=== PATIENT | female | born 1990 | race Caucasian/White ===

== ENCOUNTER 2018-04-12 06:00 | Inpatient (IN) ==
[2018-04-12] MEDS ORDERED: Famotidine 20 MG/2 ML VIAL IVP PRN (06:49)
[2018-04-12] MEDS ORDERED: Naloxone 0.4 MG/ML INJ IVP PRN (06:49)
[2018-04-12] MEDS ORDERED: *HR* Nalbuphine 10 MG/ML AMPUL IVP PRN (06:49)
[2018-04-12] MEDS ORDERED: miSOPROStol 25 MCG TABLET PO PRN (06:51)
[2018-04-12] MEDS ORDERED: Ringers Solution, Lactated 1,000 ML ONE (06:58)
[2018-04-12 07:09] LABS: Amphetamine Screen,Urine Negative ng/mL (Cutoff=1000); Barbiturate Screen,Urine Negative ng/mL (Cutoff=200)
[2018-04-12 07:10] LABS: Benzodiazepines Screen,Urine Negative ng/mL (Cutoff=300); Cannabinoid Screen,Urine Negative ng/mL (Cutoff = 50); Cocaine Screen,Urine Negative ng/mL (Cutoff= 300); Opiate Screen,Urine Negative ng/mL (Cutoff=300); Phencyclidine Screen,Urine Negative ng/mL (Cutoff=25)
--- NOTE | 2018-04-12 07:14 | OB/GYN History & Physical ---
Date of Encounter: 04/26/18 Time of Encounter: 07:12 Assessment and Plan (1) 40 weeks gestation of Status: Acute Cytotec given, 3cm on arrival Pain management as needed Clindamycin given for GBS given PCN allergy Plan for vaginal delivery (2) History of drug abuse Status: Acute On subutex, continuing (3) Hepatitis C Status: Acute Qualifiers: Viral hepatitis chronicity: unspecified Hepatic coma status: without hepatic coma Qualified Code(s): B19.20 - Unspecified viral hepatitis C without hepatic coma History of Present Illness Chief complaint: Labor induction HPI: Ms. Palma is a 28 year old female who presents at 40 weeks for postdates induction of labor. Patient has a history of Hepatitis C and drug abuse (clean since June 2017), now on Subutex. Denies any previous surgeries, vaginal bleeding or discharge. Denies headache, visual changes, or feeling contractions. GBS positive O positive Hep C positive Rubella and Varicella immune All other serologies negative Past Med Surg Social Fam HX - Past Medical History Medical history: hepatitis, other (h/o drug abuse) Additional medical history: varicose veins Psychiatric history: anxiety - Past Surgical History Surgical History: no surgical history Additional surgical history: pcos - Social History Smoking Status: Former smoker Alcohol use: none Drug use: IV Drug Use - Family History Mother Living Status: Still Living Hx Family Cardiac Disorders: Yes (htn) Hx Family Respiratory Disorders: No Hx Family Cancer: No Hx Family GI Disorders: No Hx Family Genitourinary Disorders: No Hx Family Endocrine Disorder: No Hx Family Musculoskeletal Disorders: No Hx Family Neuromuscular Disorders: No Hx Family Neurologic Disorders: No Hx Family HEENT Disorders: No Hx Family Autoimmune Disorders: No Hx Family Reproductive Disorders: No Hx Family Psychosocial Disorders: No Hx Family Medical Disorders: No Obstetrical History - Pregnancies : 2 Para: 0 Term: 0 : 0 Ab's: 1 Livin Medications and Allergies Formula Tablet 1 tab PO DAILY 04/12/18 [History] Subutex 8 mg SL BID 04/12/18 [History] RX: Benzocaine/Menthol [place] [Dermoplast [place]] 1 appl TP QID PRN aerosol 04/14/18 [Rx] RX: Ibuprofen [Motrin] 600 mg PO Q6HR PRN #30 tablet 04/14/18 [Rx] Allergy/AdvReac Type Severity Reaction Status Date / Time Penicillins [PCN] Allergy Hives Verified 04/12/18 07:00 Review of System OB All systems PM: reviewed and no additional remarkable complaints except as stated - Constitutional Constitutional ROS IM: no headache(s), no weakness - Genitourinary Genitourinary: no hematuria, no pelvic pain - Integumentary Integumentary: no swelling Exam - Vital Signs Vital signs: Initial Vital Signs Temp Pulse Resp BP 97.0 F L 86 15 122/80 04/12/18 06:40 04/12/18 06:40 04/12/18 06:40 04/12/18 06:40 - Constitutional Constitutional: well developed, well nourished, no acute distress, average body habitus - HEENT HEENT: Normocephaly, Mucus Membranes Moist - Cardiovascular Cardiovascular exam: RRR, +S1, +S2 - Abdomen Abdomen: Present: bowel sounds normal, gravid. Absent: diffuse tenderness - Extremities Deep Tendon Reflex Grade: 2+ Normal - Uterus Uterus exam: Present: normal size, normal contour Results Result Diagrams: 04/14/18 06:20 All other labs normal. - VTE Reasons for not Prescribing Prophylaxis: Treatment not Indicated - Low risk for VTE - Attending Attestation I examined this patient and my medical decision-making was reviewed with the Resident Physician. I agree with the documented findings, disposition and treatment plan as described except to the extent set forth below. Aaron Bee, FACOG
[2018-04-12 07:17] LABS: Basophils % 0.3 %; Eosinophils # 0.2 K/mcL (0.0-0.6); Hematocrit 36.5 % (35.3-44.9); Hemoglobin 12.5 g/dL (11.5-15.4); Immature Granulocytes % 0.7 % (0-4); Lymphocytes # 1.9 K/mcL (0.6-4.6); Lymphocytes % 19.9 %; Mean Corpuscular HGB Conc 34.2 g/dL (31.6-35.5); Mean Corpuscular Hemoglobin 32.6 pg (28.0-33.3); Mean Corpuscular Volume 95.3 fL (83.0-100.0); Mean Platelet Volume 12.7 fL (9.4-12.4); Monocytes # 0.4 K/mcL (0.0-1.3); Monocytes % 3.7 %; Neutrophils # 6.9 K/mcL (1.6-8.9); Platelet Count 167 K/mcL (140-400); Red Blood Count 3.83 M/mcL (3.82-4.97); Red Cell Distribution Width 13.3 % (11.5-14.5); Segmented Neutrophils % 73.4 %
[2018-04-12] MEDS: Clindamycin 900 MG/50 ML 900 MG/50 ML IV.SOLN IVPB SCH ×3 (07:23→23:29)
--- NOTE | 2018-04-12 11:14 | Anesthesia Evaluation PreOp ---
Date of Encounter: 04/12/18 Time of Encounter: 11:12 - Past History Planned Operation: [facility] Cardiac History: Denies any Significant Hx Pulmonary History: Former smoker WIRELINE OPERATOR History: Denies Any Significant HX Other Medical History: Hepatic (hepatitis C) Anesthesia History: No Prior Anesthetic Complications : Yes Alcohol Use: none Drug use: IV Drug Use (no abuse since 06/2017) Medications and Allergies Ferrous Sulfate 325 mg PO DAILY 04/12/18 [History] Formula Tablet 1 tab PO DAILY 04/12/18 [History] Subutex 8 mg SL BID 04/12/18 [History] 3 Allergy/AdvReac Type Severity Reaction Status Date / Time Penicillins [PCN] Allergy Hives Verified 04/12/18 07:00 - Meds/Allergy Pre-op Review Medications Reviewed: Yes Allergies Reviewed: Yes Beta Blockers on Current Med List: No Anesthesia Results - Labs 04/12/18 06:50 Anesthesia Exam O2 Sat Height 1.65 m Weight 99.4 kg Vital Signs Temp Pulse Resp BP 97.0 F L 86 15 122/80 04/12/18 06:40 04/12/18 06:40 04/12/18 06:40 04/12/18 06:40 NPO (# of Hours): solids > 8hrs Pain Scale: 0 Pain Scale Used: Numeric (1 - 10) - HEENT Pupil (Motor): Pupils equal Mallampati: II Teeth: Normal Oral Opening: Greater than 3 - WIRELINE OPERATOR LOC: Oriented WIRELINE OPERATOR Motor: Normal RUE, Normal LUE, Normal RLE, Normal LLE, Normal Face WIRELINE OPERATOR Sensory: Normal: RUE, LUE, RLE, LLE, Face - Cardiac Rhythm: Regular Murmur: None - Pulmonary Breath Sounds: bilateral Clear Respiratory Effort: Symmetrical Anesthesia Assess/Plan ASA Score: 2 Modified [place] Scale for Level of Consciousness: Cooperative, oriented, and tranquil Anesthetic Plan: Regional Autologous Blood: No Monitoring Plan: Standard Monitors Recovery Plan: Other
[2018-04-12] MEDS ORDERED: *HR* FentaNYL (PF) 100 MCG/2 ML VIAL EP ONE (11:16)
[2018-04-12] MEDS ORDERED: Bupivacaine-MPF 0.25% 10 ML VIAL EP ONE (11:16)
[2018-04-12] MEDS ORDERED: Lidocaine -MPF 1% 5 ML AMPUL ONE (11:18)
[2018-04-12] MEDS ORDERED: Epidural Premix (fent/bupiv) 110 ML EP SCH (11:30)
--- NOTE | 2018-04-12 12:24 | OB Labor Progress Note ---
Date of Encounter: 04/12/18 Time of Encounter: 12:22 Labor Progress Note - Cervix Cervix: /-1 - Heart Tones Heart Tones: CAT 1 - Interventions Interventions: AROM / clear - Plan Plan: Anticipate
--- NOTE | 2018-04-12 13:22 | Anesthesia Procedures ---
Date of Encounter: 04/12/18 Time of Encounter: 13:05 Procedures: Anesthesia - Epidural/Spinal Patient ID/Chart reviewed: Yes Patient examined: Yes OB Eval: Gestational age: 40 weeks 3 days OB Eval: : 2 OB Eval: Hx Para: 0 OB Eval: Dilated at (cm): 4 OB Eval: Contractions: Non-stressed pattern Consent Obtained: Yes Supplemental Oxygen: None/Room Air Site Prep: Aseptic Technique, Sterile prep and drape, Povidone-Iodine 1% Patient position: upright Local Anesthetic: Lidocaine 1% Amount of Local Anesthetic used: 3 Touhy Needle Gauge: 18 Touhy Needle Depth (cm): 6 Catheter Depth at Skin (cm): 11 Test Dose (1.5% Lido + Epi): Volume given (mls): 5 Test Dose Result: Negative Loading Dose: 0.25% Marcaine (mls): 5 Loading Dose: Fentanyl (mcg): 100 Loading Dose Administered: Thru Catheter Infusion Med: 0.125% Bupivacaine w/ 2 mcg/ml Fentanyl Infusion Rate (mls/hr): 14 (w/ demand bolus of 5mL q30min PRN) Catheter Secured in Place: Tegaderm, Tape Interspace Used: L4-L5 Loss of Resistance (JESSICA): Yes Blood: No CSF: No Paresthesia: No Procedure: successful on 1st attempt; patient tolerated procedure well; VSS Vitals + FHT's: see Marie CRAVEN's electronic records for VS entry
[2018-04-12] MEDS ORDERED: Oxytocin 20 units/ LR 1000 mL 20 UNIT/1,000 ML BAG IVC ONE (14:13)
[2018-04-12] MEDS ORDERED: Oxytocin 20 units/ LR 1000 mL 20 UNIT/1,000 ML BAG IVC SCH (14:15)
[2018-04-12] MEDS: Ringers Solution, Lactated 1,000 ML IVC SCH ×3 (14:19→23:32)
[2018-04-12] MEDS ORDERED: Ondansetron ODT 4 MG TAB.RAPDIS SL PRN (17:07)
--- NOTE | 2018-04-12 17:14 | Anesthesia Progress Note ---
Date of Encounter: 04/12/18 Time of Encounter: 17:11 Anesthesia Note - Note Note: called to patient's bedside to evaluate breakthrough labor pain. Patient describes pain as being "all over, insider her." 5mL of 0.125% bupivicaine given through epidural catheter. After 10min, patient reports no significant improvement in pain so another 5mL of 0.125% bupivicaine given through catheter. patient reports improvement in pain. VSS 04/12/18 17:11
[2018-04-12] MEDS ORDERED: *HR* Buprenorphine HCl 8 MG TAB.SUBL SL SCH (17:15)
[2018-04-12] MEDS ORDERED: *HR* Ropivacaine/PF 0.2% 20 ML VIAL ONE (20:29)
[2018-04-12] MEDS ORDERED: *HR* FentaNYL (PF) 100 MCG/2 ML VIAL ONE (20:29)
--- NOTE | 2018-04-12 22:31 | Anesthesia Progress Note ---
Date of Encounter: 04/12/18 Time of Encounter: 21:01 Anesthesia Note - Note Note: called to patient's bedside to evaluate breakthrough pain. A total of 15mL of 0.2% ropivicaine + 100mcg fentanyl required to make patient have significant improvement in pain score. VSS 04/12/18 21:01 04/12/18 22:31
[2018-04-12] MEDS ORDERED: Acetaminophen 325 MG TABLET PO ONE (23:15)
--- NOTE | 2018-04-13 01:57 | OB Labor Progress Note ---
Date of Encounter: 04/13/18 Time of Encounter: 01:56 Labor Progress Note - Cervix Cervix: 6-790/-1 - Heart Tones Heart Tones: Cat 1 - Interventions Interventions: IUPC placed
[2018-04-13] MEDS ORDERED: *HR* FentaNYL (PF) 100 MCG/2 ML VIAL ONE (02:32)
[2018-04-13] MEDS ORDERED: *HR* Ropivacaine/PF 0.2% 20 ML VIAL ONE ×2 (02:32→09:31)
--- NOTE | 2018-04-13 03:05 | Anesthesia Progress Note ---
Date of Encounter: 04/13/18 Time of Encounter: 02:45 Anesthesia Note - Note Note: called to patient bedside to evaluate breakthrough labor pain (Dr. Michaels remained in case). Patient c/o pain "all over inside her" and in her back. Confirmed proper catheter position. Positioned patient onto her back and 8mL of 0.2% ropivicaine + 100mcg fentanyl administered. Upon entering room 10 min later, patient was found to be resting in bed with eyes closed in no obvious distress. VSS 04/13/18 03:03
--- NOTE | 2018-04-13 06:02 | OB Labor Progress Note ---
Date of Encounter: 04/13/18 Time of Encounter: 05:22 Labor Progress Note - Subjective Subjective: per nurses - Cervix Cervix: 7/80/+ - Heart Tones Heart Tones: CAT 1 - [place]: Q 2-3 - Plan Plan: Anticipate
--- NOTE | 2018-04-13 06:14 | Anesthesia Progress Note ---
Date of Encounter: 04/13/18 Time of Encounter: 06:11 Anesthesia Note - Note Note: called to patient bedside to evaluate breakthrough labor pain. Patient describes pain 10/10 in her lower back with contractions. 12mL of 0.2% ropivicaine administered through epidural catheter. After 15 min, patient reports improvement in pain score. VSS. 04/13/18 06:12
[2018-04-13] MEDS: *HR* Buprenorphine HCl 8 MG TAB.SUBL SL SCH ×2 (06:21→18:01)
[2018-04-13] MEDS: Clindamycin 900 MG/50 ML 900 MG/50 ML IV.SOLN IVPB SCH (08:28)
--- NOTE | 2018-04-13 10:55 | OB Labor Progress Note ---
Date of Encounter: 04/13/18 Time of Encounter: 10:54 Labor Progress Note - Subjective Subjective: Pt somewhat comfortable with epidural. - Cervix Cervix: 9/90/+1 - Heart Tones Heart Tones: FHR Category I Baseline 140 Moderate variability No accelerations No decelerations - [place]: IUPC - inadequate contractions - Interventions Interventions: SVE Position changes to deep left lateral - Plan Plan: Continue active management Position changes as needed Increase pitocin to adequate contractions Anticipate
--- NOTE | 2018-04-13 13:20 | OB Labor Progress Note ---
Date of Encounter: 04/13/18 Time of Encounter: 13:17 Labor Progress Note - Subjective Subjective: Patient comfortable with epidural - Cervix Cervix: 10/100/+1 - Heart Tones Heart Tones: FHR category I - [place]: IUPC adequate contraction - Interventions Interventions: SVE Pushing x 1 hour - progress but maternal exhaustion - Plan Plan: Continue active management Labor down x 1 hour Anticipate
--- NOTE | 2018-04-13 16:27 | OB/GYN Procedure Note ---
Delivery - Delivery Date: 04/13/18 Provider: Mary Hernandez Intrapartum events: none Delivery induction: AROM, oxytocin, misoprostol Delivery augmentation: rupture of membranes, pitocin Delivery monitor: external FHT, external uterine, internal uterine Anesthesia: epidural Quantitated Blood Loss: 300 - (s) Infant A Delivery Date: 04/13/18 Delivery Time: 14:44 Presentation: vertex Position: OA Route of delivery: Gender: Female Viability: Viable Pounds: 8 Ounces: 9 Weight Gram: 3.865 kg at 1 minute: 8 at 5 mins: 9 Shoulder Dystocia: not encountered Specimens collected: cord blood Placenta: spontaneous, uterine exploration Cord: 3 umbilical vessels - Repair Episiotomy: none Laceration Description: Vaginal (left - repaired) - Complications Delivery complications: retained placenta (membranes retained - Dr. Lundberg called for extraction) Delivery comments: The the 28-year-old G2 now P1 who is admitted for induction of labor. She progressed with Pitocin augmentation, AROM, misoprostol to the second stage of labor. She pushed for 2 hours and 15 minutes. She will delivered a viable female infant, "Lashawn", direct OA over an intact perineum. The was placed on the maternal abdomen where she was allowed to transition spontaneously. The umbilical umbilical cord was double clamped by broommaker and cut by FOB after pulsations had ceased. No nuchal cord was identified. No shoulder dystocia was encountered. scores were 8 at 1 minute and 9 at 5 minutes. The infant weighed 8 lbs. 9 oz. The placenta delivered ([place]) spontaneously, fragmented, with a three-vessel cord. Dr. Lundberg was called to bedside for removal of trailing membranes. Inspection revealed a vaginal sidewall laceration on the left. The laceration was repaired with a 3-0 Vicryl. The uterus was firm with no active bleeding. The repair was done under epidural anesthesia. EBL was 300 mL. Placenta and umbilical artery blood gases were not sent. There were no complications during the procedure. Mom and baby are cuddling following delivery. - Disposition Mom disposition: stable in LDR [place] disposition: stable in LDR
[2018-04-13] MEDS ORDERED: Ibuprofen 600 MG TABLET PO PRN ×2 (21:02→22:42)
[2018-04-13] MEDS ORDERED: Oxytocin 20 units/ LR 1000 mL 20 UNIT/1,000 ML BAG IVC SCH (22:42)
[2018-04-13] MEDS ORDERED: Benzocaine/Menthol 56 GM AEROSOL SPRAY TP PRN (22:42)
[2018-04-13] MEDS ORDERED: Acetaminophen 325 MG TABLET PO PRN (22:42)
[2018-04-14 06:49] LABS: Basophils % 0.3 %; Eosinophils # 0.3 K/mcL (0.0-0.6); Hematocrit 33.1 % (35.3-44.9); Hemoglobin 11.1 g/dL (11.5-15.4); Immature Granulocytes % 0.8 % (0-4); Lymphocytes # 2.6 K/mcL (0.6-4.6); Lymphocytes % 18.2 %; Mean Corpuscular HGB Conc 33.5 g/dL (31.6-35.5); Mean Corpuscular Hemoglobin 32.1 pg (28.0-33.3); Mean Corpuscular Volume 95.7 fL (83.0-100.0); Mean Platelet Volume 12.6 fL (9.4-12.4); Monocytes # 0.6 K/mcL (0.0-1.3); Monocytes % 4.4 %; Neutrophils # 10.7 K/mcL (1.6-8.9); Platelet Count 140 K/mcL (140-400); Red Blood Count 3.46 M/mcL (3.82-4.97); Red Cell Distribution Width 13.2 % (11.5-14.5); Segmented Neutrophils % 74.3 %
[2018-04-14 08:03] VITALS: BP 118/76
[2018-04-14] MEDS ORDERED: Prenatal Vit/FA 1 EACH TABLET PO SCH (09:00)
[2018-04-14] MEDS ORDERED: *HR* Buprenorphine HCl 8 MG TAB.SUBL SL SCH (09:00)
--- NOTE | 2018-04-14 09:31 | Discharge Summary ---
Date of Encounter: 04/14/18 Time of Encounter: 09:33 - Discharge Diagnosis (1) Vaginal delivery Priority: Primary Status: Acute Comments: Continue care Anticipate discharge to [facility] status today Meeting day 1 milestones. (2) History of drug abuse Priority: Secondary Status: Acute Comments: Continue Subutex as previously prescribed. - Discharge Medications Prescriptions: Ibuprofen [Motrin] 600 mg PO Q6HR PRN #30 tablet PRN Reason: Cramping Home Medications: Formula Tablet 1 tab PO DAILY 04/12/18 [History] Subutex 8 mg SL BID 04/12/18 [History] Benzocaine/Menthol [place] [Dermoplast [place]] 1 appl TP QID PRN aerosol 04/14/18 [Rx] Ibuprofen [Motrin] 600 mg PO Q6HR PRN #30 tablet 04/14/18 [Rx] Allergies/Adverse Reactions: 3 Allergy/AdvReac Type Severity Reaction Status Date / Time Penicillins [PCN] Allergy Hives Verified 04/12/18 07:00 Data Procedures and tests throughout hospitalization: Laboratory Tests 04/12/18 04/12/18 04/14/18 06:45 06:50 06:20 WBC 9.4 14.4 H D RBC 3.83 3.46 L Hgb 12.5 11.1 L Hct 36.5 33.1 L MCV 95.3 95.7 MCH 32.6 32.1 MCHC 34.2 33.5 RDW 13.3 13.2 Plt Count 167 140 MPV 12.7 H 12.6 H Immature Gran % 0.7 0.8 Seg Neutrophils % 73.4 74.3 Lymphocytes % 19.9 18.2 Monocytes % 3.7 4.4 Eosinophils % 2.0 2.0 Basophils % 0.3 0.3 Neutrophils # 6.9 10.7 H Lymphocytes # 1.9 2.6 Monocytes # 0.4 0.6 Eosinophils # 0.2 0.3 Basophils # 0.0 0.0 Urine Opiates Screen Negative Ur Barbiturates Screen Negative Ur Phencyclidine Scrn Negative Ur Amphetamines Screen Negative U Benzodiazepines Scrn Negative Urine Cocaine Screen Negative U Marijuana (THC) Screen Negative Ur Drug Screen Interp See Below Labs on day of discharge: Labs from last 24 hours 04/14/18 06:20 WBC 14.4 H D RBC 3.46 L Hgb 11.1 L Hct 33.1 L MCV 95.7 MCH 32.1 MCHC 33.5 RDW 13.2 Plt Count 140 MPV 12.6 H Immature Gran % 0.8 Seg Neutrophils % 74.3 Lymphocytes % 18.2 Monocytes % 4.4 Eosinophils % 2.0 Basophils % 0.3 Neutrophils # 10.7 H Lymphocytes # 2.6 Monocytes # 0.6 Eosinophils # 0.3 Basophils # 0.0 Date of admission: 04/12/18 06:30 Primary care physician: PCP NONE Consults: 04/13/18 22:42 Consult to [facility] [CONS] Routine Comment: Vaginal delivery, consult needed Consult to Jewel Sorter [CONS] Routine Reason for SW Consult: Subutex group Discharging clinician: Sariah Martell Anticipated date of discharge: 04/14/18 - Patient Status Disposition: Home, Self-Care Condition: Good Functional capacity at discharge: independent ambulation Overall status at discharge: patient is progressing back to baseline - Discharge Instructions Follow Up With: NONE,PCP [Primary Care Provider] - Aaron Somers MD [Partnered Physician] - - Diet and Activity Activity: increase activity as tolerated Diet: regular diet Hospital Course [facility] Reason for admission: other (Induction of labor) Hospital course: Delivery Date: 04/13/18 Provider: Mary Hernandez Intrapartum events: none Delivery induction: AROM, oxytocin, misoprostol Delivery augmentation: rupture of membranes, pitocin Delivery monitor: external FHT, external uterine, internal uterine Anesthesia: epidural Quantitated Blood Loss: 300 Time Attestation: Total time spent providing and/or coordinating discharge services: Time Spent: Less than 30 minutes Exam - Constitutional Vitals: Temp Pulse Resp BP Pulse Ox 97.4 F L 65 16 118/76 99 04/14/18 08:02 04/14/18 08:02 04/14/18 08:02 04/14/18 08:02 04/14/18 06:03 General appearance IM: cooperative, A&O X 3, pleasant, no acute distress, answers questions appropriately - Respiratory Respiratory exam: Present: CTAB - Cardiovascular Cardiovascular exam IM: Present: RRR, +S1, +S2 - GI/Abdominal GI/Abdominal exam IM: normal bowel sounds, soft - Rectal Rectal exam: deferred - Uterine Tone: Firm Uterus Position: At Umbilicus - Extremities Exam Extremities exam IM: Present: full ROM, normal capillary refill, normal inspection - Neurological Exam Neurological exam: alert, oriented X3 - VTE Reasons for not Prescribing Prophylaxis: Treatment not Indicated - Low risk for VTE
== END 2018-04-14 10:21 | disposition home or self-care (01) | DRG 541 ==
LOC: 1NENULAB 06:30 → 1NENUOBS 04-13 17:45
PROVIDERS: ADMIT Obstetrics & Gynecology; ATTEND Obstetrics & Gynecology

== ENCOUNTER 2020-03-11 15:29 | Observation (INO) ==
[2020-03-11 17:34] LABS: Basophils # 0.1 K/mcL (0.0-0.2); Basophils % 0.5 %; Eosinophils # 0.4 K/mcL (0.0-0.6); Eosinophils % 4.1 %; Hematocrit 31.9 % (35.3-44.9); Hemoglobin 10.8 g/dL (11.5-15.4); Immature Granulocytes % 0.7 % (0-4); Lymphocytes # 1.9 K/mcL (0.6-4.6); Mean Corpuscular HGB Conc 33.9 g/dL (31.6-35.5); Mean Corpuscular Hemoglobin 33.2 pg (28.0-33.3); Mean Corpuscular Volume 98.2 fL (83.0-100.0); Mean Platelet Volume 12.6 fL (9.4-12.4); Monocytes # 0.5 K/mcL (0.0-1.3); Monocytes % 4.4 %; Neutrophils # 7.3 K/mcL (1.6-8.9); Platelet Count 123 K/mcL (140-400); Protein/Creatinine Ratio,Urine 0.27 mg/mg (0.00-0.20); Red Blood Count 3.25 M/mcL (3.82-4.97); Red Cell Distribution Width 13.3 % (11.5-14.5); Segmented Neutrophils % 71.3 %; White Blood Count 10.2 K/mcL (4.3-11.1)
[2020-03-11 17:44] LABS: Alanine Aminotransferase 14 Units/L (7-52); Aspartate Amino Transferase 18 Units/L (13-39); BUN/Creatinine Ratio 8 (6-26); Blood Urea Nitrogen 4 mg/dL (6-20); Lactate Dehydrogenase 148 Units/L (140-271); eGFR For African Americans > 60 (> 60); eGFR For Non-African Americans > 60 (> 60)
== END 2020-03-11 18:08 | disposition home or self-care (01) ==
LOC: 1NENULAB
PROVIDERS: ADMIT Obstetrics & Gynecology; ATTEND Obstetrics & Gynecology

== ENCOUNTER 2020-04-01 19:16 | Inpatient (IN) ==
[~2020-04-01 19:16] MED LIST: *HR* FentaNYL (PF) 100 MCG/2 ML VIAL IVP PRN; Famotidine 20 MG/2 ML VIAL IVP PRN; Metoclopramide 10 MG/2 ML VIAL IVP PRN; Naloxone 0.4 MG/ML INJ IVP PRN; Ondansetron 4 MG/2 ML VIAL IVP PRN; Oxytocin 20 units/ LR 1000 mL 20 UNIT/1,000 ML BAG IVC SCH; Ringers Solution, Lactated 1,000 ML IVC SCH
[2020-04-01] MEDS ORDERED: Bupivacaine-MPF 0.25% 10 ML VIAL EP ONE (20:24)
[2020-04-01] MEDS ORDERED: *HR* FentaNYL (PF) 100 MCG/2 ML VIAL EP ONE (20:24)
[2020-04-01] MEDS ORDERED: EPHEDrine 50 MG/ML VIAL IVP PRN (20:24)
[2020-04-01] MEDS ORDERED: Epidural Premix (fent/bupiv) 110 ML EP SCH (20:30)
[2020-04-01] MEDS ORDERED: *HR* FentaNYL (PF) 100 MCG/2 ML VIAL ONE (20:33)
[2020-04-01] MEDS ORDERED: Bupivacaine-MPF 0.25% 10 ML VIAL ONE (20:33)
[2020-04-01 20:48] LABS: Basophils % 0.4 %; Eosinophils # 0.3 K/mcL (0.0-0.6); Eosinophils % 3.2 %; Hematocrit 35.7 % (35.3-44.9); Hemoglobin 12.4 g/dL (11.5-15.4); Immature Granulocytes % 0.7 % (0-4); Lymphocytes # 2.2 K/mcL (0.6-4.6); Mean Corpuscular HGB Conc 34.7 g/dL (31.6-35.5); Mean Corpuscular Hemoglobin 33.8 pg (28.0-33.3); Mean Corpuscular Volume 97.3 fL (83.0-100.0); Mean Platelet Volume 12.4 fL (9.4-12.4); Monocytes # 0.4 K/mcL (0.0-1.3); Monocytes % 3.4 %; Neutrophils # 7.3 K/mcL (1.6-8.9); Platelet Count 156 K/mcL (140-400); Red Blood Count 3.67 M/mcL (3.82-4.97); Red Cell Distribution Width 13.1 % (11.5-14.5); Segmented Neutrophils % 71.3 %; White Blood Count 10.2 K/mcL (4.3-11.1)
[2020-04-01 20:57] LABS: Amphetamine Screen,Urine Negative ng/mL (Cutoff=1000); Barbiturate Screen,Urine Negative ng/mL (Cutoff=200); Benzodiazepines Screen,Urine Positive ng/mL (Cutoff=200); Cannabinoid Screen,Urine Negative ng/mL (Cutoff = 50); Cocaine Screen,Urine Negative ng/mL (Cutoff= 300); Opiate Screen,Urine Negative ng/mL (Cutoff=300); Phencyclidine Screen,Urine Negative ng/mL (Cutoff=25)
[2020-04-01] MEDS ORDERED: *HR* Buprenorphine HCl 8 MG TAB.SUBL SL SCH (21:00)
[2020-04-01] MEDS ORDERED: Lidocaine -MPF 2% 5 ML VIAL ONE (23:10)
[2020-04-02] MEDS ORDERED: Ropivacaine/PF 0.2% 20 ML VIAL ONE (03:48)
[2020-04-02] MEDS ORDERED: *HR* FentaNYL (PF) 100 MCG/2 ML VIAL ONE (03:48)
[2020-04-02] MEDS ORDERED: *HR* Labetalol 20 MG/4 ML SYRINGE IVP ONE (06:40)
[2020-04-02] MEDS ORDERED: Acetaminophen 325 MG TABLET PO PRN (08:14)
[2020-04-02] MEDS ORDERED: Oxytocin 20 units/ LR 1000 mL 20 UNIT/1,000 ML BAG IVC ONE (08:14)
[2020-04-02] MEDS ORDERED: Oxytocin 20 units/ LR 1000 mL 20 UNIT/1,000 ML BAG IVC SCH (08:14)
[2020-04-02] MEDS ORDERED: Lanolin 7 G OINT...G. TP PRN (08:14)
[2020-04-02] MEDS: Prenatal Vit/FA 1 EACH TABLET PO SCH (09:13)
[2020-04-02] MEDS: *HR* Buprenorphine HCl 8 MG TAB.SUBL SL SCH ×2 (10:11→19:51)
[2020-04-02] MEDS: Ibuprofen 600 MG TABLET PO PRN ×2 (10:19→16:38)
[2020-04-03] MEDS: Ibuprofen 600 MG TABLET PO PRN ×3 (00:58→19:45)
[2020-04-03 09:25] LABS: Basophils % 0.4 %; Eosinophils # 0.4 K/mcL (0.0-0.6); Hematocrit 32.1 % (35.3-44.9); Hemoglobin 10.8 g/dL (11.5-15.4); Immature Granulocytes % 0.5 % (0-4); Immature Platelets 10.3 % (1.1-6.1); Lymphocytes # 2.3 K/mcL (0.6-4.6); Lymphocytes % 25.7 %; Mean Corpuscular HGB Conc 33.6 g/dL (31.6-35.5); Mean Corpuscular Hemoglobin 33.2 pg (28.0-33.3); Mean Corpuscular Volume 98.8 fL (83.0-100.0); Mean Platelet Volume 12.1 fL (9.4-12.4); Monocytes # 0.4 K/mcL (0.0-1.3); Monocytes % 3.8 %; Platelet Count 147 K/mcL (140-400); Red Blood Count 3.25 M/mcL (3.82-4.97); Red Cell Distribution Width 13.2 % (11.5-14.5); Segmented Neutrophils % 65.6 %; White Blood Count 9.1 K/mcL (4.3-11.1)
[2020-04-03] MEDS: Prenatal Vit/FA 1 EACH TABLET PO SCH (09:39)
[2020-04-03] MEDS: *HR* Buprenorphine HCl 8 MG TAB.SUBL SL SCH ×2 (09:40→19:46)
[2020-04-03 09:42] LABS: Alanine Aminotransferase 13 Units/L (7-52); Aspartate Amino Transferase 18 Units/L (13-39); BUN/Creatinine Ratio 21 (6-26); Blood Urea Nitrogen 12 mg/dL (6-20); Lactate Dehydrogenase 166 Units/L (140-271); Uric Acid 5.4 mg/dL (2.3-7.6); eGFR For African Americans > 60 (> 60); eGFR For Non-African Americans > 60 (> 60)
[2020-04-03] MEDS: NIFEdipine XL (24 HR) 30 MG TAB.ER.24 PO SCH (15:29)
[2020-04-04] MEDS: Ibuprofen 600 MG TABLET PO PRN (03:40)
[2020-04-04 08:21] VITALS: BP 133/87
[2020-04-04] MEDS: NIFEdipine XL (24 HR) 30 MG TAB.ER.24 PO SCH (09:27)
[2020-04-04] MEDS: *HR* Buprenorphine HCl 8 MG TAB.SUBL SL SCH (09:27)
[2020-04-04] MEDS: Prenatal Vit/FA 1 EACH TABLET PO SCH (09:27)
[2020-04-04] MEDS ORDERED: FLU Vac QV 20-21 (6Month+)/PF 0.5 ML SYRINGE IM ONE (10:55)
== END 2020-04-04 13:02 | disposition home or self-care (01) | DRG 560 ==
LOC: 1NENULAB → 1NENUNUR → 1NENULAB 19:16 → 1NENUOBS 04-02 08:09
PROVIDERS: ADMIT Obstetrics & Gynecology; ATTEND Obstetrics & Gynecology